=== PATIENT | male | born 1985 | race Caucasian/White ===

== ENCOUNTER 2025-07-05 08:16 | Emergency (ER) | payer OTHER, SELFPAY ==
[2025-07-05 08:17] VITALS: BMI 29.4
[2025-07-05 08:23] VITALS: BP 142/80; PULSE 84; RESP 17; TEMP 36.9; O2SAT 95
--- NOTE | 2025-07-05 08:28 | EDNOTE_ITS ---
ED Wound/Laceration-RME/HPI General Chief Complaint: Wound/Laceration Stated Complaint: LAC to hand Time Seen by Provider: 07/05/25 08:24 Arrival date/time: 07/05/25 08:16 Limitations: no limitations RME / HPI Location: other (hand) Extremity Location: Left: hand Patient tetanus UTD: No Context: accidental RME / HPI narrative: 39-year-old male with accidental laceration to left hand while moving a greasy microwave. Unknown last Tdap. States was worried he had cut his muscle or tendon or artery Related Data Allergies Allergy/AdvReac Type Severity Reaction Status Date / Time No Known Allergies Allergy Verified 07/05/25 08:18 Review of Systems Review of Systems Systems Reviewed: All systems reviewed, normal except as documented Constitutional Constitutional: Denies fever(s) Musculoskeletal Musculoskeletal: Reports as per HPI Integumentary/Breasts Skin/Breast: Reports as per HPI ED Exam General Limitations: Present no limitations General appearance: Present alert and in no apparent distress Head Head exam: Present atraumatic Respiratory Respiratory exam: Present normal lung sounds bilaterally Cardiovascular Cardiovascular exam: Present regular rate, normal rhythm and normal heart sounds Abdominal Exam Abdominal exam: Present soft and normal bowel sounds Extremities Exam Extremities exam: Present full ROM and tenderness (1.5 laceration to left thenar aspect of hand, no tendon involvment or arterial bleed) Back Exam Back exam: Present normal inspection and full ROM Psychiatric Psychiatric exam: Present normal affect and normal mood Skin Skin exam: Present warm, dry, intact and normal color Course Quality Measures none Orders Category Date Time Status Irrigate Wound NOW Care 07/05/25 08:27 Completed Set Up Suture Tray STAT Care 07/05/25 08:52 Completed Splint / Immobilizer STAT Care 07/05/25 09:22 Completed Suture / Staple Removal NOW Care 07/05/25 08:27 Completed Lidocaine 1% Vial 20 ml [Xylocaine 1% 20 ML] Med 07/05/25 08:40 Discontinued 20 ml INFL X1 ONE Lidocaine Inj 2% 20 ml [Xylocaine Inj 2% 20 ml] Med 07/05/25 08:27 Discontinued 20 ml IM X1 ONE TET,DIP/PERT AC (Adult)-Tdap [Boostrix Adult (Tdap) Med 07/05/25 08:27 Discontinued Vacc] 0.5 ml IMI .ONCE ONE Vital Signs Vital signs: Vital Signs Temperature 98.4 F 07/05/25 08:23 Pulse Rate 84 07/05/25 08:23 Respiratory Rate 17 07/05/25 08:23 Blood Pressure 142/80 H 07/05/25 08:23 Pulse Oximetry (%) 95 07/05/25 08:23 Oxygen Delivery Method Room Air 07/05/25 08:23 PROCEDURES: Laceration Laceration 1: Site: hand Side (If applicable): left Size (cm): 1.5 Description: linear Depth: simple, single layer Local Anesthetic: lidocaine 1% Amount of anesthesia used (mL): 5 Pre-repair: wound explored, irrigated extensively, deep structures intact and wound margins revised Skin layer closed with: nylon Suture size (cm): 5-0 Number of sutures: 12 Technique: simple, interrupted Splint Fabrication: Pre-Fabricated Type: Thumb Spica Reason for Splint: Improve Function Site condition: Pain Circulation Distal to Splint: Yes Movement Distal to Splint: Yes Senation Distal to Splint: Yes Tolerance: Tolerates Well Wound / Laceration Patient data External records reviewed:: [facility] previous records Clinical information provided by:: patient Social determinants that could affect healthcare access:: other (specify) (no pcp appt on weekend ) Patient has the following chronic illnesses:: none How is presenting disease/condition affected by chronic disease/condition?: no chronic disease Evaluation data The following diagnostics were reviewed and interpreted by me:: other (specify) (none ) Lab and/or radiology exams considered but not ordered:: all considered were ordered Interpretation Summary: none Medications / Prescriptions Medications or Prescriptions considered but not ordered:: abx considered but not warranted Medication administrations:: Medication Administration History Discontinued Medications Diphtheria/Tetanus/Acell Pertussis (Diphth,Pertuss(Acell),Tet Vac 0.5 Ml Syr- Adult) 0.5 ml IMi .ONCE ONE Stop: 07/05/25 08:28 Last Admin: 07/05/25 08:46 Dose: 0.5 ml Documented By: HANNAH Lidocaine HCl (Lidocaine Inj 2% 20 Ml Vial) 20 ml IM X1 ONE Stop: 07/05/25 08:28 Last Admin: 07/05/25 08:41 Dose: Not Given Documented By: HANNAH Non-Admin Reason: Cancelled by Provider Lidocaine HCl (Lidocaine Hcl 1% 20 Ml Vial) 20 ml INFL X1 ONE Stop: 07/05/25 08:41 Last Admin: 07/05/25 08:45 Dose: 20 ml Documented By: HANNAH Comments: administered by Diana ROBINS see above Consultations Consultation(s) initiated? (list below): No Diagnosis Wound Differential Diagnosis: laceration, abscess, abrasion and avulsion of skin Most likely diagnosis given after review of the tests above:: laceration Admission Indicated Admission indicated?: not indicated Admission Request Was there a request for admission?: No Disposition Plan Disposition Plan: Discharge Discharge Attestation Discharge Attestation: The patient and all family members were given an opportunity to ask questions and understood the discharge instructions. Discharge instructions specifically effects, indications for sooner follow up or return to the emergency department, and the expected course of current diagnosis. Patient condition: Stable Discharge Plan Plan Patient Disposition: HOME (Self Care) Discharge Disposition comment: Follow-up with PCP in 7 to 10 days Problem List Clinical Impression: Laceration Patient/Caregiver Discharge Instructions Education Materials: ED Laceration Hand with ... Print Language: Vietnamese Stand Alone Forms: Tiffany Award Info., Patient Portal Info Letter SHIMON/JOSE Supervising Physician SHIMON/JOSE Supervising Physician: Dr. Duran
[2025-07-05] MEDS: LIDOCAINE HCL 1% 20 ML VIAL INFL (08:45)
[2025-07-05] MEDS: DIPHTH,PERTUSS(ACELL),TET VAC 0.5 ML SYR- ADULT IMi (08:46)
== END 2025-07-05 10:02 | disposition home or self-care (01) ==
LOC: SERX 09:46
PROVIDERS: Emergency Provider Emergency Medicine; PCP Family Medicine
DX: S61.412A Laceration without foreign body of left hand, initial encounter (principal); X58.XXXA Exposure to other specified factors, initial encounter; Y93.89 Activity, other specified; Z23 Encounter for immunization
CPT/HCPCS: 12002; 90471; 90715; 99282; J3490